=== PATIENT | male | born 1935 | race Caucasian/White ===

== ENCOUNTER 2017-11-04 16:33 | Emergency (ER) | payer BC, MEDICARE ==
[~2017-11-04] VITALS: Ht 175.3 cm; Wt 77.6 kg
--- NOTE | 2017-11-04 16:45 | NUR ---
[facility] CALLED
--- NOTE | 2017-11-04 16:46 | NUR ---
SANYA C/O ALOC; [facility] to the ER; BS 113 in field; Last known well - 1500 PM. A/OX 2. BREATHING EVEN AND UNLABORED. NO SOB, NAD, VITALS STABLE. NO NEURO DEFICITS NOTED. SAFETY AND COMFORT MEASURES IN PLACE. AWAITING MD ORDERS.
--- NOTE | 2017-11-04 16:50 | NUR ---
PATIENT TAKEN TO CT VIA STRETCHER.
[2017-11-04] MEDS ORDERED: IOHEXOL-350 100 ML VIAL IV ONE (16:52)
[2017-11-04 16:55] LABS: BASOPHILS % (AUTO) 0.7 % (0.0-2.0); EOSINOPHILS % (AUTO) 3.6 % (0.0-6.0); HEMATOCRIT 43 % (39-51); HEMOGLOBIN 14.7 g/dL (13.5-17.5); LYMPHOCYTES # (AUTO) 2.5 /CMM (0.8-4.8); LYMPHOCYTES % (AUTO) 37.2 % (20.0-44.0); MEAN CORPUSCULAR HGB CONC 34 g/dl (31.0-36.0); MEAN CORPUSCULAR VOLUME 105 fL (80-96); MONOCYTES # (AUTO) 0.6 /CMM (0.1-1.30); MONOCYTES % (AUTO) 8.7 % (2.0-12.0); NEUTROPHILS # (AUTO) 3.4 /CMM (1.8-8.9); NEUTROPHILS % (AUTO) 49.8 % (43.0-81.0); PLATELET COUNT (AUTO) 215 /CMM (150-450); RDW COEFFICIENT OF VARIATION 12.3 (11.5-15.0); RED BLOOD CELL COUNT(AUTO) 4.13 MIL/uL (4.5-6.0); WHITE BLOOD COUNT (AUTO) 6.7 K/uL (4.3-11.0)
--- NOTE | 2017-11-04 17:03 | NUR ---
PATIENT IS BACK FROM CT
[2017-11-04 17:05] LABS: CALCIUM, SERUM 9.1 mg/dL (8.5-10.1); CARBON DIOXIDE 29 mmol/L (21-32); CHLORIDE 105 mmol/L (98-107); GLUCOSE 89 mg/dL (74-106); INR 0.92 (0.85-1.15); POTASSIUM 3.7 mmol/L (3.5-5.1); SODIUM SERUM 140 mmol/L (136-145); UREA NITROGEN, BLOOD 11 mg/dL (7-18)
--- NOTE | 2017-11-04 17:09 | NUR ---
AWAITING CALL BACK FROM DR ROCHA TELEROKE
[2017-11-04 17:17] LABS: ALANINE AMINOTRANSFERASE 24 U/L (12-78); ALBUMIN 3.4 g/dL (3.4-5.0); ALKALINE PHOSPHATASE 122 U/L (46-116); ASPARTATE AMINOTRANSFERASE 27 U/L (15-37); BILIRUBIN,DIRECT 0.1 mg/dL (0.0-0.2); BILIRUBIN,TOTAL 0.5 mg/dL (0.2-1.0); TOTAL PROTEIN, SERUM 6.8 g/dL (6.4-8.2)
[2017-11-04 17:19] LABS: TROPONIN I < 0.017 ng/mL (0.00-0.056)
[2017-11-04 17:51] LABS: CHOLESTEROL 182 mg/dL (<200); HDL CHOLESTEROL 99 mg/dL (40-60); LDL 72 mg/dL (0-99); TRIGLYCERIDES 125 mg/dL (30-150)
--- NOTE | 2017-11-04 18:30 | NUR ---
PATIENT AMBULATING WITH STEADY GAIT IN HALLWAY WITH FAMILY.
[2017-11-04 18:41] VITALS: BP 124/82
--- NOTE | 2017-11-04 18:42 | NUR ---
Patient discharged to home in stable condition. Written and verbal after care instructions given. Patient verbalizes understanding of instruction.IV removed. Catheter intact and site benign. Pressure and 4x4 applied to site. No bleeding noted.
== END 2017-11-04 18:43 | disposition home or self-care (01) ==
LOC: ER 16:47
DX: S09.8XXA Other specified injuries of head, initial encounter (principal); R41.82 Altered mental status, unspecified; F10.129 Alcohol abuse with intoxication, unspecified; F03.90 Unspecified dementia, unspecified severity, without behavioral disturbance, psychotic disturbance, mood disturbance, and anxiety; I63.9 Cerebral infarction, unspecified; I49.8 Other specified cardiac arrhythmias; Y90.8 Blood alcohol level of 240 mg/100 ml or more; Z86.73 Personal history of transient ischemic attack (TIA), and cerebral infarction without residual deficits; X58.XXXA Exposure to other specified factors, initial encounter; Y93.89 Activity, other specified; Y92.89 Other specified places as the place of occurrence of the external cause; Y99.8 Other external cause status
CPT/HCPCS: 36415; 70450; 70496; 70498; 71045; 80048; 80061; 80076; 82962; 84484; 85025; 85730; 93005; 99291; A4606; G0480; Q9967; Z7610